=== PATIENT | female | born 1935 | race Two or more races ===

== ENCOUNTER 2020-02-24 10:00 | Inpatient (IN) | payer OTHER ==
[~2020-02-24] VITALS: Ht 157.5 cm; Wt 63.5 kg
[2020-02-24] MEDS ORDERED: ENALAPRIL MALEA20 MG PO (11:51)
[2020-02-24] MEDS ORDERED: LEVOTHYROXINE25 MCG PO (11:52)
[2020-02-24] MEDS ORDERED: TOPROL XL100 M1 PO (11:53)
[2020-02-24] MEDS ORDERED: LIPITOR40 MG PO (11:54)
[2020-02-24] MEDS ORDERED: LASIX20 MG PO (11:54)
[2020-02-24] MEDS ORDERED: [UNRECOGNIZED DRUG - OTHER] PO (11:56)
[2020-03-02] MEDS ORDERED: CLOPIDOGREL BIS75 MG (08:16)
[2020-03-02] MEDS ORDERED: METOPROLOL TAR100 MG (08:16)
[2020-03-02] MEDS ORDERED: FENOFIBRATE160 MG (08:16)
[2020-03-02] MEDS ORDERED: SULINDAC200 MG (08:16)
[2020-03-02] MEDS ORDERED: LEVOTHYROXINE25 MC1 (08:16)
[2020-03-02] MEDS ORDERED: ATORVASTATIN CA80 MG (08:17)
[2020-03-02] MEDS ORDERED: PROPAFENONE HC225 MG (08:17)
[2020-03-02] MEDS ORDERED: FERROUS SULFAT325 MG (08:17)
[2020-03-02] MEDS ORDERED: HYDRODIURIL12.5 MG (08:17)
[2020-03-02] MEDS ORDERED: TERAZOSIN HCL2 M1 (08:17)
[2020-03-02] MEDS ORDERED: FOLIC ACID1 MG (08:18)
[2020-03-04] MEDS ORDERED: BACTRIM DS TAB1 EACH PO (06:48)
[2020-03-04] MEDS ORDERED: INTEGRA PLUS C1 EACH PO (06:48)
[2020-03-04] MEDS ORDERED: XARELTO10 MG PO (06:48)
[2020-03-04] MEDS ORDERED: OXYC1TAB9 PO (06:48)
[2020-03-04] MEDS ORDERED: PROPAFENONE HC225 M1 (16:51)
[2020-03-04] MEDS ORDERED: TOPROL XL100 M1 (16:51)
[2020-03-04] MEDS ORDERED: HYDROCHLOROTH12.5 MG (16:51)
[2020-03-04] MEDS ORDERED: ENALAPRIL MALEA20 MG (16:52)
[2020-03-04] MEDS ORDERED: LEVO-T25 MCG (16:52)
== END 2020-03-09 03:04 | disposition home or self-care (01) | DRG 470 ==
LOC: RECOVERY 03-02 07:00 → O/R 03-02 08:05 → SURG 03-02 08:05 → RECOVERY 03-02 10:00 → SURG 03-02 14:40 → O/R 03-02 14:40 → SURG 03-04 14:37 → O/R 03-04 14:37
PROVIDERS: ADMIT Orthopaedic Surgery Sports Medicine; ATTEND Orthopaedic Surgery Sports Medicine
PROC: 0SRD0J9 Replacement of Left Knee Joint with Synthetic Substitute, Cemented, Open Approach (ICD-10-PCS; principal; 2020-03-02 07:00)
PROC: 4A12X4Z Monitoring of Cardiac Electrical Activity, External Approach (ICD-10-PCS; 2020-03-05)
PROC: 30233N1 Transfusion of Nonautologous Red Blood Cells into Peripheral Vein, Percutaneous Approach (ICD-10-PCS; 2020-03-05)
DX: M17.12 Unilateral primary osteoarthritis, left knee (principal); I47.1 Supraventricular tachycardia; I10 Essential (primary) hypertension; I25.10 Atherosclerotic heart disease of native coronary artery without angina pectoris; D64.89 Other specified anemias; E03.8 Other specified hypothyroidism; Z20.828 Contact with and (suspected) exposure to other viral communicable diseases; Z96.652 Presence of left artificial knee joint; Z95.5 Presence of coronary angioplasty implant and graft; I95.89 Other hypotension; R79.89 Other specified abnormal findings of blood chemistry

== ENCOUNTER 2020-03-04 16:32 | Inpatient (IN) | payer OTHER ==
[~2020-03-04] VITALS: Ht 157.5 cm; Wt 63.5 kg
[~2020-03-04 16:32] MED LIST: ATORVASTATIN CA80 MG; BACTRIM DS TAB1 EACH PO; CLOPIDOGREL BIS75 MG; ENALAPRIL MALEA20 MG PO; FENOFIBRATE160 MG; FERROUS SULFAT325 MG; FOLIC ACID1 MG; HYDRODIURIL12.5 MG; INTEGRA PLUS C1 EACH PO; LASIX20 MG PO; LEVOTHYROXINE25 MC1; LEVOTHYROXINE25 MCG PO; LIPITOR40 MG PO; METOPROLOL TAR100 MG; OXYC1TAB9 PO; PROPAFENONE HC225 MG; SULINDAC200 MG; TERAZOSIN HCL2 M1; TOPROL XL100 M1 PO; XARELTO10 MG PO; [UNRECOGNIZED DRUG - OTHER] PO
[2020-03-04] MEDS ORDERED: HYDROCHLOROTH12.5 MG (16:51)
[2020-03-04] MEDS ORDERED: TOPROL XL100 M1 (16:51)
[2020-03-04] MEDS ORDERED: PROPAFENONE HC225 M1 (16:51)
[2020-03-04] MEDS ORDERED: ENALAPRIL MALEA20 MG (16:52)
[2020-03-04] MEDS ORDERED: LEVO-T25 MCG (16:52)
--- NOTE | 2020-03-04 16:53 | NUR ---
PTE SE RECIBE POR HEART PALPITATIONS Y TAQUICARDIA REFIERE PARAMEDICO Y PTE.
--- NOTE | 2020-03-04 18:00 | NUR ---
SE RECIBE PACIENTE ALERTA Y ORIENTADA EN AMBULANCIA , PARAMEDICOS REFIERE PULSO ELEVADO Y PRESIONES BAJAS. CORWIN CANTU REALIZA TRIAGE. SE ACOMODA PACIENTE EN CAMA SE CONECTA A MONITOR CARDIACO Y OXIMETRIA DE PULSO. EVALUADA POR EL DR. GORDON SE ORIENTA A PACIENTE SOBRE TRATAMEITNO MEDICO SE EXTRAEN MUESTRAS DE KRISTOPHER Y SE ADMISNITRAN MEDICAMENTOS LALA ORDEN MEDICA BAJO MEDIDAS ASEPTICAS. SE COLOCA CANULA NASAL A 3L/MIN. SE CANALIZA EN ANTEBRAZO IZQUEIRDO. SE SAJI COMODIDAD A PACIENTE SE RUPAL EN CAMA BAJO OBSERVACION POR CAMBIOS EN IVEY CONDICION.
--- NOTE | 2020-03-04 20:30 | NUR ---
8:30pm PACIENTE ALERTA Y ORIENTADA REEVALUADA POR EL DR. GORDON SE ORIENTA A PACIENTE SOBRE TRATAMIENOT MEDICO SE EXTRAEN MUESTRAS DE KRISTOPHER LALA ORDEN MEDICA BAJO MEDIDAS ASEPTICAS. SE COLLIN TUBOS PILOTOS Y SE LLEVAN A BANCO DE KRISTOPHER. 9:05PM SE RECIBE LLAMADA DE [facility] NOTIFICA PANICO TROPONINA EN .[address] GORDON . EL MISMO CONSULTA A APCIENTE CON EL DR. NAVARRETE ORDENA QUE SE LE ADMINISTRE 300MG DE PLAVIX Y 81MG ASPIRINA. SE ORIENTA A PACIENTE SOBRE TRATAMEINTO MEDICO SE LE ADMISNITRA MEDICAMENTOS LALA ORDEN MEDICA BAJO MEDIDAS ASEPTICAS. SE REALIZA EKG Y SE PRESENTA A DR. GORDON. SE SAJI COMODIDAD A PACIENTE SE RUPAL EN CAMA BAJO OBSERVACION POR CAMBIOS EN IVEY CONDICION.
--- NOTE | 2020-03-04 22:53 | NUR ---
1:15PM SE RECIBE LLAMADA DE BANCO DE KRISTOPHER PARA NOTIFICAR KRISTOPHER DE PACIENTE.
--- NOTE | 2020-03-04 23:10 | NUR ---
PACIENTE ALERTA Y ORIENTADA LE SUBEN PRESIONES LUEGO DE PONER LEVOPHED SE NOTIFICA A DRYogi NELSONHEIDI PRESIONES 150/78 INDICA QUE SE PONGA LEVOPHED EN HOLD Y SE LE ADMINISTRE DRIP DE TRIDIL 50MG/250ML BAJANDO A 2ML/HR. SE ACOMODA PACEINTE SE RUPAL PACIENTE EN CAMA BAJO OSBERVACION POR CAMBIOS EN IVEY CONDICION.
--- NOTE | 2020-03-05 00:35 | NUR ---
PTE FEMRENINA ALERTA Y ORIENTADA X3,CONECTADA A MONITOR CARDIASCO CONSTANE Y OXIMETRIA DE PULD\SO CONTINIA CON 2 H/L PATENTES LIBRES DE EDEMA Y ENROJECIMIENTO,CON (.9NSS@80,TRIDIL@2)Y BAJANDO PRIMERA FRACCION DE PRIMERA UNIDAD DE PRBC LA CUAL PTE TOLERA,SE MANTIENE A PTE EN VIGILANCIA RIN POR CAMBIOS. PTE CON C/N A 3LTRS
--- NOTE | 2020-03-05 03:42 | NUR ---
245AM-SE TERMINA 1RA UNIDAD FRACCIONADA DE PRBC 345AM-SE COMIENZA 2DA FRACCION DE PRIMERA UNIDAD LA CUAL PTE TOLERA.SE MANTIENE EN VIGILANCIA RIN POR CAMBIOS.
--- NOTE | 2020-03-05 09:01 | NUR ---
800SE RECIBE FEMINA ALERTA Y ORIENTADA. SEMISENTADA IVFS PATENTES, RECIBIENDO UNIDAD DE KRISTOPHER FRACCIONADA PATENTE. 830 EVALUA PTE ORDENA EVALUACION DE NUTRISIONISTA NOT Y TECNICO DE ORTOPEDIA.
--- NOTE | 2020-03-05 11:59 | NUR ---
SE REALIZA JOAN EN CAMA SE RUPAL LIMPIA Y CONECTADA EN MONITOR.
== END 2020-03-09 16:21 | disposition home or self-care (01) | DRG 812 ==
LOC: ER 16:32 → MEDI 03-05 13:08 → SEC-K 03-05 13:08 → MEDI 03-05 23:32
PROVIDERS: ADMIT Internal Medicine Cardiovascular Disease; ATTEND Internal Medicine Cardiovascular Disease
PROC: 4A12X4Z Monitoring of Cardiac Electrical Activity, External Approach (ICD-10-PCS; principal; 2020-03-05)
PROC: 30233N1 Transfusion of Nonautologous Red Blood Cells into Peripheral Vein, Percutaneous Approach (ICD-10-PCS; 2020-03-05)
DX: D64.89 Other specified anemias (principal); I47.1 Supraventricular tachycardia; E03.9 Hypothyroidism, unspecified; I95.89 Other hypotension; R79.89 Other specified abnormal findings of blood chemistry; Z95.5 Presence of coronary angioplasty implant and graft; Z96.652 Presence of left artificial knee joint; Z20.828 Contact with and (suspected) exposure to other viral communicable diseases

== ENCOUNTER 2020-03-15 10:58 | Emergency (ER) | payer OTHER ==
[~2020-03-15] VITALS: Ht 152.4 cm; Wt 59.0 kg
[~2020-03-15 10:58] MED LIST changes: +ENALAPRIL MALEA20 MG; +HYDROCHLOROTH12.5 MG; +LEVO-T25 MCG; +PROPAFENONE HC225 M1; +TOPROL XL100 M1
[2020-03-15] MEDS ORDERED: PLAVIX75 MG (11:03)
== END 2020-03-16 00:10 ==
LOC: ER 10:58
DX: I95.89 Other hypotension (principal); Z96.652 Presence of left artificial knee joint

== ENCOUNTER 2020-10-12 08:00 | Inpatient (IN) | payer OTHER ==
[~2020-10-12] VITALS: Ht 157.5 cm; Wt 64.4 kg
[~2020-10-12 08:00] MED LIST changes: +ENALAPRIL MALEA10 MG PO; -ENALAPRIL MALEA20 MG; +PLAVIX75 MG
[2020-10-20] MEDS ORDERED: TOPROL XL50 M1 PO (08:47)
[2020-10-21] MEDS ORDERED: INTEGRA PLUS C1 EACH PO (07:23)
[2020-10-21] MEDS ORDERED: OXYC1TAB9 PO (07:23)
[2020-10-21] MEDS ORDERED: BACTRIM DS TAB1 EACH PO (07:23)
[2020-10-21] MEDS ORDERED: XARELTO10 MG PO (07:23)
== END 2020-10-21 19:24 | DRG 470 ==
LOC: O/R 10-19 06:33 → SURH 10-19 06:33
PROVIDERS: ADMIT Orthopaedic Surgery Sports Medicine; ATTEND Orthopaedic Surgery Sports Medicine
PROC: 0SRC0J9 Replacement of Right Knee Joint with Synthetic Substitute, Cemented, Open Approach (ICD-10-PCS; principal; 2020-10-19 15:15)
DX: M17.11 Unilateral primary osteoarthritis, right knee (principal); Z20.822 Contact with and (suspected) exposure to COVID-19

== ENCOUNTER 2020-12-17 15:34 | Emergency (ER) | payer OTHER ==
[~2020-12-17] VITALS: Ht 157.5 cm; Wt 54.4 kg
[~2020-12-17 15:34] MED LIST changes: +TOPROL XL50 M1 PO
[2020-12-17] MEDS ORDERED: ACETAMINOPHEN500 M1 PO (15:44)
[2020-12-17] MEDS ORDERED: METOPROLOL SUC100 MG PO (15:44)
[2020-12-17] MEDS ORDERED: ST. JOSEPH ASPI81 M2 PO (15:44)
[2020-12-17] MEDS ORDERED: BACLOFEN10 MG PO (15:45)
[2020-12-17] MEDS ORDERED: ELIQUIS2.5 MG PO (15:45)
== END 2020-12-18 21:34 | disposition home or self-care (01) ==
LOC: ER 15:34
DX: S70.02XA Contusion of left hip, initial encounter (principal); R10.2 Pelvic and perineal pain; R42 Dizziness and giddiness; R53.1 Weakness; N39.0 Urinary tract infection, site not specified; W18.09XA Striking against other object with subsequent fall, initial encounter; Y93.89 Activity, other specified; Y92.89 Other specified places as the place of occurrence of the external cause; Y99.8 Other external cause status; Z96.652 Presence of left artificial knee joint; Z96.651 Presence of right artificial knee joint